=== PATIENT | female | born 1935 | race Caucasian/White ===

== ENCOUNTER 2022-05-31 10:20 | Inpatient (IN) | payer MEDICARE ==
[~2022-05-31] VITALS: Ht 167.6 cm; Wt 65.8 kg
[2022-05-31] MEDS ORDERED: IV NORMAL SALINE 500 ML BAG IV ONE (10:30)
[2022-05-31] MEDS ORDERED: HYDR25TA4 PO (10:40)
[2022-05-31] MEDS ORDERED: LOSA25TA27 PO (10:40)
[2022-05-31 11:13] LABS: HEMATOCRIT 40.8 % (31.2-41.9); MEAN CORPUSCULAR HEMOGLOBIN 30.3 uug (24.7-32.8); MEAN CORPUSCULAR VOLUME 89.8 fL (75.5-95.3); PLATELET COUNT (AUTO) 318 K/uL (179-408)
[2022-05-31 11:28] LABS: CARBON DIOXIDE 23 mmol/L (21-32); CHLORIDE 91 mmol/L (98-107); CREATININE 0.7 mg/dL (0.6-1.3); GLUCOSE 131 mg/dL (74-106); POTASSIUM 3.6 mmol/L (3.5-5.1); UREA NITROGEN, BLOOD 17 mg/dL (7-18)
--- NOTE | 2022-05-31 11:32 | NUR ---
Urine sent to lab.
[2022-05-31 11:34] LABS: *BILIRUBIN,URIN NEGATIVE (NEGATIVE); *BLOOD, URINE 1+ (NEGATIVE); *CLARITY,URINE CLEAR (CLEAR); *COLOR,URINE YELLOW (YELLOW); *KETONES,URINE 1+ (NEGATIVE); *UROBILINOGEN,URINE 0.2 E.U./dl (NORMAL); LEUKOCYTE ESTERASE ,URINE NEGATIVE (NEGATIVE); NITRITE, URINE NEGATIVE (NEGATIVE); UGLUCOSE NEGATIVE (NEGATIVE)
--- NOTE | 2022-05-31 11:38 | NUR ---
Critical lab - troponin 56. Dr. Hurley notified.
--- NOTE | 2022-05-31 11:38 | NUR ---
Patient taken fpr CT scan.
--- NOTE | 2022-05-31 11:43 | NUR ---
Called the admitting doctor, awaiting a call back.
[2022-05-31] MEDS ORDERED: ASPIRIN 81 MG TAB.CHEW ONE (12:54)
[2022-05-31 12:58] LABS: BACTERIA,URINE NONE SEEN /HPF (NONE SEEN); RBC,URINE 0-3 /HPF (0-3); SQUAMOUS EPITHELIAL CELL,UR FEW /HPF (NONE SEEN); WBC,URINE 0-3 /HPF (0-3)
[2022-05-31] MEDS ORDERED: ASPIRIN 81 MG TAB.CHEW PO ONE (13:00)
--- NOTE | 2022-05-31 13:23 | NUR ---
Gave report to [employer]. Patient to go to room 318 teelemetry
--- NOTE | 2022-05-31 13:38 | NUR ---
Paged Mariah Arias to report troponin level of 67, awaiting call back.
--- NOTE | 2022-05-31 13:41 | NUR ---
Mariah Arias notified about patient's troponin level
[2022-05-31] MEDS ORDERED: MAGNESIUM HYDROXIDE 30 ML LIQUID UDC PO PRN (14:30)
[2022-05-31] MEDS ORDERED: ZOLPIDEM 5 MG TABLET PO PRN (14:30)
[2022-05-31] MEDS ORDERED: ACETAMINOPHEN 325 MG TABLET PO PRN (14:30)
[2022-05-31] MEDS ORDERED: ONDANSETRON 4 MG/2 ML VIAL IV PRN (14:30)
--- NOTE | 2022-05-31 14:37 | NUR ---
Patient transferred to telemetry unit room 318 accompanied by RN.
--- NOTE | 2022-05-31 15:12 | NUR ---
86 year old female received from er via gurney to room 318 for sncope.pt is axox1.vs are stable call light with in reach md notified for the admission orders
[2022-05-31] MEDS: LOSARTAN POTASSIUM 25 MG TABLET PO SCH (15:24)
[2022-05-31] MEDS: ENOXAPARIN SODIUM 40 MG/0.4 ML DISP.SYRIN SQ SCH (15:26)
[2022-05-31] MEDS: IV NS 1000 ML 1,000 ML IV PRN (15:27)
[2022-05-31 16:20] VITALS: BP 137/49
--- NOTE | 2022-05-31 19:35 | NUR ---
Pt is A&Ox2 and cooperative, but does show signs of dementia. SR on tele. Pt on Rm Air. Pt just urinated. Safety measures in place. Will continue to monitor.
[2022-05-31 20:00] VITALS: BP 115/49
[2022-05-31] MEDS: ATORVASTATIN 20 MG TABLET PO SCH (21:41)
[2022-06-01] VITALS: BP 115/36
[2022-06-01 04:00] VITALS: BP 116/42
--- NOTE | 2022-06-01 06:45 | NUR ---
End of Shift Note: Pt is A&Ox2 and cooperative, but does show signs of dementia. SR on tele. Pt on Rm Air. Pt's BP is stabilizing at approximately 115/45. Safety measures in place. Will continue to monitor.
[2022-06-01] MEDS: IV NS 1000 ML 1,000 ML IV PRN (06:48)
[2022-06-01 07:51] LABS: HEMATOCRIT 33.6 % (31.2-41.9); MEAN CORPUSCULAR VOLUME 89.6 fL (75.5-95.3); PLATELET COUNT (AUTO) 273 K/uL (179-408)
[2022-06-01 08:08] LABS: CREATININE 0.6 mg/dL (0.6-1.3); MAGNESIUM 1.8 mg/dL (1.8-2.4); PHOSPHOROUS 2.1 mg/dL (2.5-4.9)
[2022-06-01] MEDS: LOSARTAN POTASSIUM 25 MG TABLET PO SCH (08:08)
[2022-06-01] MEDS: ASPIRIN 81 MG TAB.CHEW PO SCH (08:20)
[2022-06-01] MEDS: ENOXAPARIN SODIUM 40 MG/0.4 ML DISP.SYRIN SQ SCH (08:21)
[2022-06-01] MEDS ORDERED: POTASSIUM CHLORIDE 20 MEQ TAB.PRT.SR PO ONE ×2 (11:00→13:00)
[2022-06-01 11:34] VITALS: BP 134/47
[2022-06-01 12:34] LABS: URIC ACID 5.2 mg/dL (2.6-6.0)
[2022-06-01 13:32] LABS: THYROID STIMULATING HORMONE 0.697 mIU/mL (0.358-3.740)
[2022-06-01] MEDS ORDERED: NEUTRA PHOS PACKET PO ONE (16:00)
[2022-06-01 16:36] VITALS: BP 137/59
[2022-06-01 19:50] VITALS: BP 134/60
[2022-06-01] MEDS: ATORVASTATIN 20 MG TABLET PO SCH (20:04)
[2022-06-02 05:00] VITALS: BP 152/63
[2022-06-02] MEDS: IV NS 1000 ML 1,000 ML IV PRN (05:53)
[2022-06-02 07:38] LABS: HEMATOCRIT 38.3 % (31.2-41.9); MEAN CORPUSCULAR HEMOGLOBIN 30.4 uug (24.7-32.8); MEAN CORPUSCULAR VOLUME 90.1 fL (75.5-95.3); PLATELET COUNT (AUTO) 296 K/uL (179-408)
[2022-06-02 08:29] LABS: CREATININE 0.6 mg/dL (0.6-1.3); MAGNESIUM 1.9 mg/dL (1.8-2.4); PHOSPHOROUS 2.6 mg/dL (2.5-4.9); POTASSIUM 3.9 mmol/L (3.5-5.1)
[2022-06-02] MEDS: LOSARTAN POTASSIUM 25 MG TABLET PO SCH (09:25)
[2022-06-02] MEDS: ASPIRIN 81 MG TAB.CHEW PO SCH (09:25)
[2022-06-02] MEDS: ENOXAPARIN SODIUM 40 MG/0.4 ML DISP.SYRIN SQ SCH (09:27)
[2022-06-02 11:48] VITALS: BP 143/41
[2022-06-02] MEDS ORDERED: ASPI81TA31 PO (15:25)
[2022-06-02] MEDS ORDERED: ATOR20TA PO (15:25)
[2022-06-02 15:55] VITALS: BP 115/55
--- NOTE | 2022-06-02 18:32 | NUR ---
pt is discharge. pt will go back to [facility]. pt is hemodynamically stable. no dizziness noted. no pain complain. family is notified of discharge.l pt is ambulatory with [facility]. all belongings accounted for. iv access was removed. left via [facility] ambulance on a gurney.
== END 2022-06-02 18:30 | DRG 73 ==
LOC: ER 10:27 → TELE3 14:08
PROVIDERS: ADMIT Nurse Practitioner Acute Care; ATTEND Nurse Practitioner Acute Care
DX: G90.8 Other disorders of autonomic nervous system (principal); G92.8 Other toxic encephalopathy; E87.1 Hypo-osmolality and hyponatremia; M62.82 Rhabdomyolysis; N17.9 Acute kidney failure, unspecified; R55 Syncope and collapse; Z20.822 Contact with and (suspected) exposure to COVID-19; E86.1 Hypovolemia; E87.6 Hypokalemia; I10 Essential (primary) hypertension; Z85.3 Personal history of malignant neoplasm of breast; I35.0 Nonrheumatic aortic (valve) stenosis; T50.2X5A Adverse effect of carbonic-anhydrase inhibitors, benzothiadiazides and other diuretics, initial encounter; Y92.89 Other specified places as the place of occurrence of the external cause; W01.0XXA Fall on same level from slipping, tripping and stumbling without subsequent striking against object, initial encounter; Y93.9 Activity, unspecified; Z90.5 Acquired absence of kidney
CPT/HCPCS: 36415; 70450; 71045; 82533; 83735; 83935; 84100; 84300; 84443; 84484; 84550; 85025; 93005; 93307; A4663; C1758; G0378; J1650; J7040

== ENCOUNTER 2023-11-23 10:21 | Inpatient (IN) | payer MEDICARE ==
[~2023-11-23] VITALS: Ht 157.5 cm; Wt 59.9 kg
[~2023-11-23 10:21] MED LIST: ASPI81TA31 PO; ATOR20TA PO; HYDR25TA4 PO; LOSA25TA27 PO
[2023-11-23] MEDS: IV NORMAL SALINE 1000 ML BAG IV ONE (10:30)
[2023-11-23] MEDS ORDERED: PANT40TA49 PO (10:35)
[2023-11-23] MEDS ORDERED: LOSA1TAB36 PO (10:35)
[2023-11-23] MEDS: PANTOPRAZOLE SODIUM IV 80 MG in IV DEXTROSE 5% 100 ML IV ONE (10:50)
[2023-11-23 10:53] LABS: BASOPHILS # (AUTO) 0.3 K/UL (0.0-0.2); BASOPHILS % (AUTO) 2.3 % (0.0-2.0); DIFFERENTIAL COMMENT 1; EOSINOPHILS % (AUTO) 0.2 % (0.0-7.0); HEMATOCRIT 37.9 % (31.2-41.9); HEMOGLOBIN 12.5 g/dL (10.9-14.3); LYMPHOCYTES # (AUTO) 0.7 K/uL (0.8-4.8); LYMPHOCYTES % (AUTO) 6.1 % (20.5-51.5); MEAN CORPUSCULAR HGB CONC 33 g/dL (32.3-35.6); MEAN CORPUSCULAR VOLUME 91.4 fL (75.5-95.3); MONOCYTES # (AUTO) 0.5 K/uL (0.1-1.30); MONOCYTES % (AUTO) 4.9 % (0.0-11.0); NEUTROPHILS # (AUTO) 9.5 K/uL (1.8-8.9); NEUTROPHILS % (AUTO) 86.5 % (38.5-71.5); PLATELET COUNT (AUTO) 289 K/uL (179-408); RED BLOOD CELL COUNT(AUTO) 4.15 MIL/uL (3.63-4.92)
[2023-11-23 11:07] LABS: ALBUMIN 3.7 g/dL (3.4-5.0); BILIRUBIN,DIRECT 0.1 mg/dL (0.0-0.2); BILIRUBIN,TOTAL 0.5 mg/dL (0.2-1.0); CALCIUM 9.6 mg/dL (8.5-10.1); CREATININE 0.9 mg/dL (0.6-1.3); POTASSIUM 3.3 mmol/L (3.5-5.1); TOTAL PROTEIN, SERUM 7.9 g/dL (6.4-8.2)
[2023-11-23] MEDS ORDERED: ACETAMINOPHEN 500 MG TABLET ONE (16:22)
[2023-11-23] MEDS: ACETAMINOPHEN 500 MG TABLET PO ONE ×2 (16:31→16:32)
[2023-11-23] MEDS ORDERED: ACETAMINOPHEN 650 MG SUPP.RECT RC PRN (19:45)
[2023-11-23] MEDS ORDERED: MORPHINE SULFATE 2 MG/1 ML DISP.SYRIN IV PRN (19:45)
[2023-11-23] MEDS ORDERED: ONDANSETRON 4 MG/2 ML VIAL IV PRN (19:45)
[2023-11-23 22:41] VITALS: BP 132/50; TEMP 98.6; O2SAT 96
[2023-11-24 06:34] LABS: BASOPHILS # (AUTO) 0.1 K/UL (0.0-0.2); BASOPHILS % (AUTO) 0.7 % (0.0-2.0); EOSINOPHILS % (AUTO) 0.2 % (0.0-7.0); HEMATOCRIT 32.8 % (31.2-41.9); LYMPHOCYTES % (AUTO) 24.9 % (20.5-51.5); MEAN CORPUSCULAR HEMOGLOBIN 30.5 uug (24.7-32.8); MEAN CORPUSCULAR HGB CONC 34 g/dL (32.3-35.6); MEAN CORPUSCULAR VOLUME 90.8 fL (75.5-95.3); MONOCYTES # (AUTO) 0.5 K/uL (0.1-1.30); MONOCYTES % (AUTO) 6.1 % (0.0-11.0); NEUTROPHILS # (AUTO) 5.4 K/uL (1.8-8.9); NEUTROPHILS % (AUTO) 68.1 % (38.5-71.5); PLATELET COUNT (AUTO) 267 K/uL (179-408); RED BLOOD CELL COUNT(AUTO) 3.61 MIL/uL (3.63-4.92)
[2023-11-24 06:53] VITALS: BP 150/52; TEMP 98.4; O2SAT 97
[2023-11-24 06:58] LABS: IRON, SERUM 54 ug/dL (50-175)
[2023-11-24 07:04] LABS: ALANINE AMINOTRANSFERASE 21 U/L (14-59); ALKALINE PHOSPHATASE 68 U/L (50-136); ASPARTATE AMINOTRANSFERASE 21 U/L (15-37); BILIRUBIN,TOTAL 0.8 mg/dL (0.2-1.0); CALCIUM 8.7 mg/dL (8.5-10.1); CARBON DIOXIDE 31 mmol/L (21-32); CHLORIDE 102 mmol/L (98-107); CHOLESTEROL 181 mg/dL (<200); CREATININE 0.8 mg/dL (0.6-1.3); GLUCOSE 132 mg/dL (74-106); HDL CHOLESTEROL 51 mg/dL (40-60); NT-PRO BNP 232 pg/mL (0-125); PHOSPHOROUS 3.2 mg/dL (2.5-4.9); POTASSIUM 3.4 mmol/L (3.5-5.1); SODIUM SERUM 141 mmol/L (136-145); TOTAL PROTEIN, SERUM 6.8 g/dL (6.4-8.2); TRIGLYCERIDES 97 MG/DL (30-150); UREA NITROGEN, BLOOD 13 mg/dL (7-18)
[2023-11-24 07:07] LABS: THYROID STIMULATING HORMONE 0.656 mIU/mL (0.358-3.740)
[2023-11-24 07:11] LABS: DIFFERENTIAL COMMENT 1
[2023-11-24] MEDS: PANTOPRAZOLE SODIUM 40 MG VIAL IV SCH (08:12)
[2023-11-24] MEDS: POTASSIUM CHLORIDE 50 ML IV SCH (10:05)
[2023-11-24] MEDS ORDERED: IOHEXOL 300MG/ML 100 ML INFUS..BTL ONE (10:18)
[2023-11-24] MEDS ORDERED: SWABABLE VALVE TRANSFER SET EA MC ONE (10:18)
[2023-11-24] MEDS ORDERED: IV NORMAL SALINE 250 ML IV ONE (10:18)
[2023-11-24 16:28] VITALS: BP 148/53; TEMP 98.1; O2SAT 96
[2023-11-24 19:00] VITALS: BP 138/66; TEMP 98.6; O2SAT 96
[2023-11-25 05:45] VITALS: BP 129/57; TEMP 98.1; O2SAT 96
[2023-11-25 07:35] LABS: BASOPHILS # (AUTO) 0.1 K/UL (0.0-0.2); BASOPHILS % (AUTO) 0.9 % (0.0-2.0); EOSINOPHILS # (AUTO) 0.1 K/uL (0.0-0.7); HEMATOCRIT 32.2 % (31.2-41.9); HEMOGLOBIN 10.9 g/dL (10.9-14.3); LYMPHOCYTES # (AUTO) 2.3 K/uL (0.8-4.8); LYMPHOCYTES % (AUTO) 31.2 % (20.5-51.5); MEAN CORPUSCULAR HGB CONC 34 g/dL (32.3-35.6); MEAN CORPUSCULAR VOLUME 91.5 fL (75.5-95.3); MONOCYTES # (AUTO) 0.5 K/uL (0.1-1.30); MONOCYTES % (AUTO) 7.6 % (0.0-11.0); NEUTROPHILS # (AUTO) 4.3 K/uL (1.8-8.9); NEUTROPHILS % (AUTO) 59.3 % (38.5-71.5); PLATELET COUNT (AUTO) 240 K/uL (179-408); RED BLOOD CELL COUNT(AUTO) 3.52 MIL/uL (3.63-4.92); WHITE BLOOD COUNT (AUTO) 7.3 K/uL (3.8-11.8)
[2023-11-25 07:47] LABS: CALCIUM 8.6 mg/dL (8.5-10.1); CARBON DIOXIDE 29 mmol/L (21-32); CHLORIDE 103 mmol/L (98-107); CREATININE 0.6 mg/dL (0.6-1.3); DIFFERENTIAL COMMENT 1; GLUCOSE 129 mg/dL (74-106); SODIUM SERUM 138 mmol/L (136-145); UREA NITROGEN, BLOOD 14 mg/dL (7-18)
[2023-11-25 07:49] LABS: POTASSIUM 4.2 mmol/L (3.5-5.1)
[2023-11-25 08:00] VITALS: BP 134/50; TEMP 98.4; O2SAT 95
[2023-11-25] MEDS ORDERED: HYDR25SU13 RC (12:15)
[2023-11-25 15:38] VITALS: BP 156/64; TEMP 98.3; O2SAT 97
[2023-11-26] MEDS ORDERED: PANTOPRAZOLE SODIUM 40 MG TABLET.DR PO SCH (07:00)
== END 2023-11-25 15:50 | DRG 394 ==
LOC: ER 10:21 → TELE3 17:42 → MEDSURG3 18:14
PROVIDERS: ADMIT Internal Medicine; ATTEND Internal Medicine
PROC: 05HC33Z Insertion of Infusion Device into Left Basilic Vein, Percutaneous Approach (ICD-10-PCS; principal; 2023-11-24)
DX: K64.4 Residual hemorrhoidal skin tags (principal); D68.59 Other primary thrombophilia; Z85.3 Personal history of malignant neoplasm of breast; E78.5 Hyperlipidemia, unspecified; E11.65 Type 2 diabetes mellitus with hyperglycemia; I11.9 Hypertensive heart disease without heart failure; E87.6 Hypokalemia; R93.89 Abnormal findings on diagnostic imaging of other specified body structures; D25.9 Leiomyoma of uterus, unspecified; F03.90 Unspecified dementia, unspecified severity, without behavioral disturbance, psychotic disturbance, mood disturbance, and anxiety; I44.0 Atrioventricular block, first degree; R10.817 Generalized abdominal tenderness; Z90.12 Acquired absence of left breast and nipple; Z74.09 Other reduced mobility; Z79.899 Other long term (current) drug therapy
CPT/HCPCS: 36415; 71045; 83550; 83735; 84100; 84443; 84484; 85025; 85610; 86850; 86900; 86901; 93005; A9150; G0378; J2270; J2470; J3480; J7040; Q9967